=== PATIENT | female | born 2000 | race African-American/Black ===

== ENCOUNTER 2021-10-02 18:37 | Inpatient (IN) | payer MEDICAID ==
[~2021-10-02] VITALS: Ht 165.1 cm; Wt 70.0 kg
[2021-10-02] MEDS ORDERED: DEXAMETHASONE SOD PHOS 20 MG/5 ML VIAL. IV ONE (18:45)
[2021-10-02] MEDS ORDERED: IPRATRPIUM/ALBUTEROL 0.5/2.5MG 3 ML NEBU. NEB ONE ×2 (18:45→21:00)
[2021-10-02] MEDS ORDERED: IPRATRPIUM/ALBUTEROL 0.5/2.5MG 3 ML NEBU. ONE (18:46)
[2021-10-02] MEDS ORDERED: MAGNESIUM SULFATE 2GM 50 ML IV ONE (19:00)
[2021-10-02] MEDS ORDERED: ALBUTEROL SULFATE 2.5 MG/3 ML NEBU. CONT NEB ONE (19:00)
[2021-10-02] MEDS ORDERED: EPINEPHrine 1 MG/ML VIAL IM ONE (19:00)
[2021-10-02] MEDS ORDERED: IV NORMAL SALINE 1000ML BAG 1,000 ML IV ONE (19:00)
[2021-10-02 19:03] LABS: BASO % 1 % (0-3); EOS # 0.6 x10^3/uL (0.0-0.7); EOS % 7 % (0-3); HEMATOCRIT 47.9 % (36.0-47.0); HEMOGLOBIN 15.4 g/dL (12.0-15.5); LYMPH # 3.1 x10^3/uL (1.0-4.8); LYMPH % 35 % (24-48); MEAN CORPUSCULAR HEMOGLOBIN 28 pg (25-35); MEAN CORPUSCULAR HGB CONC 32 g/dL (31-37); MEAN CORPUSCULAR VOLUME 87 fL (79-100); MONO # 0.5 x10^3/uL (0.0-1.1); MONO % 6 % (0-9); NEUT # 4.6 x10^3/uL (1.8-7.7); NEUT % 53 % (31-73); PLATELET COUNT 289 x10^3/uL (140-400); RED CELL DISTRIBUTION WIDTH 12.9 % (11.5-14.5); WHITE BLOOD COUNT 8.7 x10^3/uL (4.0-11.0)
[2021-10-02 19:17] LABS: CALCIUM 8.3 mg/dL (8.5-10.1); CREATININE 0.7 mg/dL (0.6-1.0); GFR 106.7; POTASSIUM 3.5 mmol/L (3.5-5.1)
[2021-10-02 19:22] LABS: ALBUMIN 3.9 g/dL (3.4-5.0); ALBUMIN/GLOBULIN RATIO 1.4 (1.0-1.7); TOTAL BILIRUBIN 0.4 mg/dL (0.2-1.0); TOTAL PROTEIN 6.7 g/dL (6.4-8.2)
[2021-10-02] MEDS ORDERED: ALBUTEROL SULFATE 2.5 MG/3 ML NEBU. NEB PRN (19:30)
--- NOTE | 2021-10-02 19:38 | RAD ---
Study: XR CHEST 1V Indication: Shortness of air. Comparison: None. Findings: The cardiomediastinal silhouette and felisa are within normal limits. No localized airspace opacity, pl eural effusion or pneumothorax. Impression: No acute radiographic abnormality of the chest. Electronically signed by: CORAL HARRINGTON MD (10/02/2021 7:35 PM) [facility]
[2021-10-02 20:03] LABS: INFLUENZA A PATIENT NEGATIVE (NEGATIVE); INFLUENZA B PATIENT NEGATIVE (NEGATIVE)
--- NOTE | 2021-10-02 20:42 | PDOC1 ---
History and Physical Date of Admission Date of Admission DATE: 10/02/21 TIME: 20:34 Source Source: Chart review, Patient History of Present Illness History of Present Illness Pt seen in ER, I was called by Laly for asthma exacerbation, she had tried mag, epi, decadron, cont nebs, and pt still short of breath. Jenniffer says she feels improved in two hours since arrival, but cold and shivering and short of breath. She was in an ER in [facility] 7 days ago and sent hoem with a 5 day burst of prednisone and it ran out two days ago and she has markedly worsened. She has no [facility] primary care and tells me she needs to change that. She has seasonal trouble, spring time is always tough on her asthma, she has not ever seen an supervisor engraving or a open die inspector, she has dogs in the house and lives alone, no birds, no cats. no travel, no contact with a COVID case Past Medical History Cardiovascular: No pertinent hx Pulmonary: Asthma GI: No pertinent hx Heme/Onc: No pertinent hx ENT: No pertinent hx Renal/: No pertinent hx Endocrine: No pertinent hx Grav: 0 Past Surgical History Past Surgical History: No pertinent history Family History Family History: No Significant Social History Smoke: No ALCOHOL: none Drugs: None Current Medications Current Medications Current Medications Albuterol/ Ipratropium (Duoneb) 3 ml STK-MED ONCE .ROUTE ; Start 10/02/21 at 18:46; Stop 10/02/21 at 18:46; Status DC Albuterol/ Ipratropium (Duoneb) 3 ml 1X ONCE NEB ; Start 10/02/21 at 18:45; Stop 10/02/21 at 19:02; Status DC Dexamethasone Sodium Phosphate (Decadron) 10 mg 1X ONCE IV Last administered on 10/02/21at 19:12; Start 10/02/21 at 18:45; Stop 10/02/21 at 19:02; Status DC Epinephrine HCl (Adrenalin) 0.5 mg 1X ONCE IM Last administered on 10/02/21at 19:12; Start 10/02/21 at 19:00; Stop 10/02/21 at 19:02; Status DC Magnesium Sulfate 50 ml @ 25 mls/hr 1X ONCE IV Last administered on 10/02/21at 19:12; Start 10/02/21 at 19:00; Stop 10/02/21 at 20:59 Sodium Chloride 1,000 ml @ 1,000 mls/hr 1X ONCE IV Last administered on 10/02/21at 19:12; Start 10/02/21 at 19:00; Stop 10/02/21 at 19:59; Status DC Albuterol Sulfate (Ventolin Neb Soln) 7.5 mg 1X ONCE CONT NEB ; Start 10/02/21 at 19:00; Stop 10/02/21 at 19:02; Status DC Albuterol Sulfate (Ventolin Neb Soln) 2.5 mg Q4HRS W/A NEB ; Start 10/02/21 at 22:00 Dexamethasone Sodium Phosphate (Decadron) 6 mg DAILY IVP ; Start 10/03/21 at 09:00 Albuterol Sulfate (Ventolin Neb Soln) 2.5 mg PRN Q2HR PRN NEB SHORTNESS OF BREATH; Start 10/02/21 at 19:30 Allergies Allergies: Coded Allergies: No Known Drug Allergies (Unverified , 10/02/21) ROS General: No: Chills, Night Sweats, Fatigue, Malaise, Appetite, Other PSYCHOLOGICAL ROS: No: Anxiety, Behavioral Disorder, Concentration difficultie, Decreased libido, Depression, Disorientation, Hallucinations, Hostility, Irritablity, Memory difficulties, Mood Swings, Obsessive thoughts, Physical abuse, Sexual abuse, Sleep disturbances, Suicidal ideation, Other HEENT: No: Heacaches, Visual Changes, Hearing change, Nasal congestion, Nasal discharge, Oral lesions, Sinus pain, Sore Throat, Epistaxis, Sneezing, Snoring, Tinnitus, Vertigo, Vocal changes, Other Respiratory: YES: Shortness of breath, SOB with excertion, Tachypnea, Wheezing; No: Cough, Hemoptysis, Orthopnea, Pleuritic Pain, Sputum Changes, Stridor, Other Cardiovascular: No Chest Pain, No Palpitations, No Orthopnea, No Paroxysmal Noc. Dyspnea, No Edema, No Lt Headedness, No Other Gastrointestinal: No Nausea, No Vomiting, No Abdominal Pain, No Diarrhea, No Constipation, No Melena, No Hematochezia, No Other Genitourinary: No Dysuria, No Frequency, No Incontinence, No Hematuria, No Retention, No Discharge, No Urgency, No Pain, No Flank Pain, No Other, No , No , No , No , No , No , No Musculoskeletal: No Gait Disturbance, No Joint Pain, No Joint Stiffness, No Joint Swelling, No Muscle Pain, No Muscular Weakness, No Pain In:, No Swelling In:, No Other Neurological: No Behavorial Changes, No Bowel/Bladder ControlChng, No Confusion, No Dizziness, No Gait Disturbance, No Headaches, No Impaired Coord/balance, No Memory Loss, No Numbness/Tingling, No Seizures, No Speech Prob lems, No Tremors, No Visual Changes, No Weakness, No Other Skin: No Dry Skin, No Eczema, No Hair Changes, No Lumps, No Mole Changes, No Mottling, No Nail Changes, No Pruritus, No Rash, No Skin Lesion Changes, No Other, No Acne Physical Exam General: Alert, severe distress HEENT: Atraumatic, PERRLA Lungs: Other (fast, limited volume, decently long wheeze, end rale, ) Heart: S1S2 Abdomen: No tenderness Rectal Exam: not examined Extremities: No clubbing Neuro: Normal tone, Sensation intact Psych/Mental Status: Mood NL Vitals Vitals Vital Signs Date Time Temp Pulse Resp B/P (MAP) Pulse Ox O2 Delivery O2 Flow Rate FiO2 10/02/21 19:56 126 141/80 (100) 100 Room Air 10/02/21 18:37 42 Labs Labs Laboratory Tests Test 10/02/21 18:55 10/02/21 19:32 White Blood Count 8.7 x10^3/uL (4.0-11.0) Red Blood Count 5.50 x10^6/uL (3.50-5.40) Hemoglobin 15.4 g/dL (12.0-15.5) Hematocrit 47.9 % (36.0-47.0) Mean Corpuscular Volume 87 fL (79-100) Mean Corpuscular Hemoglobin 28 pg (25-35) Mean Corpuscular Hemoglobin Concent 32 g/dL (31-37) Red Cell Distribution Width 12.9 % (11.5-14.5) Platelet Count 289 x10^3/uL (140-400) Neutrophils (%) (Auto) 53 % (31-73) Lymphocytes (%) (Auto) 35 % (24-48) Monocytes (%) (Auto) 6 % (0-9) Eosinophils (%) (Auto) 7 % (0-3) Basophils (%) (Auto) 1 % (0-3) Neutrophils # (Auto) 4.6 x10^3/uL (1.8-7.7) Lymphocytes # (Auto) 3.1 x10^3/uL (1.0-4.8) Monocytes # (Auto) 0.5 x10^3/uL (0.0-1.1) Eosinophils # (Auto) 0.6 x10^3/uL (0.0-0.7) Basophils # (Auto) 0.0 x10^3/uL (0.0-0.2) Maternal Serum HCG Beta Subunit < 1 mIU/mL (0-5) Sodium Level 142 mmol/L (136-145) Potassium Level 3.5 mmol/L (3.5-5.1) Chloride Level 108 mmol/L (98-107) Carbon Dioxide Level 24 mmol/L (21-32) Anion Gap 10 (6-14) Blood Urea Nitrogen 8 mg/dL (7-20) Creatinine 0.7 mg/dL (0.6-1.0) Estimated GFR (Cockcroft-Gault) 106.7 BUN/Creatinine Ratio 11 (6-20) Glucose Level 119 mg/dL (70-99) Calcium Level 8.3 mg/dL (8.5-10.1) Total Bilirubin 0.4 mg/dL (0.2-1.0) Aspartate Amino Transf (AST/SGOT) 13 U/L (15-37) Alanine Aminotransferase (ALT/SGPT) 22 U/L (14-59) Alkaline Phosphatase 70 U/L (46-116) Troponin I High Sensitivity < 4 ng/L (4-50) Total Protein 6.7 g/dL (6.4-8.2) Albumin 3.9 g/dL (3.4-5.0) Albumin/Globulin Ratio 1.4 (1.0-1.7) Influenza Type A Antigen Negative (NEGATIVE) Influenza Type B Antigen Negative (NEGATIVE) SARS-CoV-2 Antigen (Rapid) Negative (NEGATIVE) Laboratory Tests Test 10/02/21 18:55 10/02/21 19:32 White Blood Count 8.7 x10^3/uL (4.0-11.0) Red Blood Count 5.50 x10^6/uL (3.50-5.40) Hemoglobin 15.4 g/dL (12.0-15.5) Hematocrit 47.9 % (36.0-47.0) Mean Corpuscular Volume 87 fL (79-100) Mean Corpuscular Hemoglobin 28 pg (25-35) Mean Corpuscular Hemoglobin Concent 32 g/dL (31-37) Red Cell Distribution Width 12.9 % (11.5-14.5) Platelet Count 289 x10^3/uL (140-400) Neutrophils (%) (Auto) 53 % (31-73) Lymphocytes (%) (Auto) 35 % (24-48) Monocytes (%) (Auto) 6 % (0-9) Eosinophils (%) (Auto) 7 % (0-3) Basophils (%) (Auto) 1 % (0-3) Neutrophils # (Auto) 4.6 x10^3/uL (1.8-7.7) Lymphocytes # (Auto) 3.1 x10^3/uL (1.0-4.8) Monocytes # (Auto) 0.5 x10^3/uL (0.0-1.1) Eosinophils # (Auto) 0.6 x10^3/uL (0.0-0.7) Basophils # (Auto) 0.0 x10^3/uL (0.0-0.2) Maternal Serum HCG Beta Subunit < 1 mIU/mL (0-5) Sodium Level 142 mmol/L (136-145) Potassium Level 3.5 mmol/L (3.5-5.1) Chloride Level 108 mmol/L (98-107) Carbon Dioxide Level 24 mmol/L (21-32) Anion Gap 10 (6-14) Blood Urea Nitrogen 8 mg/dL (7-20) Creatinine 0.7 mg/dL (0.6-1.0) Estimated GFR (Cockcroft-Gault) 106.7 BUN/Creatinine Ratio 11 (6-20) Glucose Level 119 mg/dL (70-99) Calcium Level 8.3 mg/dL (8.5-10.1) Total Bilirubin 0.4 mg/dL (0.2-1.0) Aspartate Amino Transf (AST/SGOT) 13 U/L (15-37) Alanine Aminotransferase (ALT/SGPT) 22 U/L (14-59) Alkaline Phosphatase 70 U/L (46-116) Troponin I High Sensitivity < 4 ng/L (4-50) Total Protein 6.7 g/dL (6.4-8.2) Albumin 3.9 g/dL (3.4-5.0) Albumin/Globulin Ratio 1.4 (1.0-1.7) Influenza Type A Antigen Negative (NEGATIVE) Influenza Type B Antigen Negative (NEGATIVE) SARS-CoV-2 Antigen (Rapid) Negative (NEGATIVE) VTE Prophylaxis Ordered VTE Prophylaxis Devices: No VTE Pharmacological Prophylaxi: Yes Assessment/Plan Assessment/Plan acute asthma exacerabation SIRS IV stress steroids, nebs, pulm consult, RT peak flow acute obstructive respiratory failure without hypoxia, respiratory rate 44 on presentation, HR 130 range I dont think she understands how life threatening this can be, needs a pulmonolgist, a primary care, probably an supervisor engraving and needs systemic steroids until this gets figured out. This needs to be addressed when she is feeling better as she was struggling to breathe in the ER Justifications for Admission Other Justification CRYS MADISON MD Oct 02, 2021 20:42
--- NOTE | 2021-10-02 20:47 | PHYS DOC ---
Past Medical History Past Medical History: Asthma Past Surgical History: No Surgical History Smoking Status: Never Smoker Alcohol Use: None General Adult EDM: Chief Complaint: SHORTNESS OF BREATH HPI: HPI: Patient is a 21 year old female with history of asthma presented to the ED today complaining of shortness of breath that began prior to coming to the ED roughly an hour ago. Patient denies any fever. Denies any chest pain. Reports previous history of asthma exacerbation with admission but no intubation Review of Systems: Review of Systems: Constitutional: Denies fever or chills. [] Eyes: Denies change in visual acuity. [] HENT: Denies nasal congestion or sore throat. [] Respiratory: Reports shortness of breath. Cardiovascular: Denies chest pain or edema. [] GI: Denies abdominal pain, nausea, vomiting, bloody stools or diarrhea. [] : Denies dysuria. [] Musculoskeletal: Denies back pain or joint pain. [] Integument: Denies rash. [] Neurologic: Denies headache, focal weakness or sensory changes. [] Psychiatric: Denies depression or anxiety. [] Heart Score: C/O Chest Pain: N/A Risk Factors: Risk Factors: DM, Current or recent (<one month) smoker, HTN, HLP, family history of CAD, obesity. Risk Scores: Score 0 - 3: 2.5% MACE over next 6 weeks - Discharge Home Score 4 - 6: 20.3% MACE over next 6 weeks - Admit for Clinical Observation Score 7 - 10: 72.7% MACE over next 6 weeks - Early Invasive Strategies Current Medications: Current Medications Medications (Trade) Dose Ordered Sig/Nolan Start Time Stop Time Status Last Admin Dose Admin Albuterol Sulfate (Ventolin Neb Soln) 7.5 mg 1X ONCE 10/02/21 19:00 10/02/21 19:02 DC Albuterol/ Ipratropium (Duoneb) 3 ml 1X ONCE 10/02/21 18:45 10/02/21 19:02 DC Dexamethasone Sodium Phosphate (Decadron) 10 mg 1X ONCE 10/02/21 18:45 10/02/21 19:02 DC 10/02/21 19:12 10 MG Epinephrine HCl (Adrenalin) 0.5 mg 1X ONCE 10/02/21 19:00 10/02/21 19:02 DC 10/02/21 19:12 0.5 MG Magnesium Sulfate 50 ml @ 25 mls/hr 1X ONCE 10/02/21 19:00 10/02/21 20:59 10/02/21 19:12 25 MLS/HR Sodium Chloride 1,000 ml @ 1,000 mls/hr 1X ONCE 10/02/21 19:00 10/02/21 19:59 DC 10/02/21 19:12 1,000 MLS/HR Allergies: Allergies: Allergies Coded Allergies Type Severity Reaction Last Updated Verified No Known Drug Allergies 10/02/21 No Physical Exam: PE: Constitutional: Well developed, well nourished, no acute distress, non-toxic appearance. [] HENT: Normocephalic, atraumatic, bilateral external ears normal, oropharynx moist, no oral exudates, nose normal. [] Eyes: PERRLA, EOMI, conjunctiva normal, no discharge. [] Neck: Normal range of motion, no tenderness, supple, no stridor. [] Cardiovascular: Tachycardic Lungs & Thorax: Patient is very short of air, scattered wheezing throughout the lung bases Abdomen: Bowel sounds normal, soft, no tenderness, no masses, no pulsatile masses. [] Skin: Warm, dry, no erythema, no rash. [] Back: No tenderness, no CVA tenderness. [] Extremities: No tenderness, no cyanosis, no clubbing, ROM intact, no edema. [] Neurologic: Alert and oriented X 3, normal motor function, normal sensory function, no focal deficits noted. [] Psychologic: Affect normal, judgement normal, mood normal. [] Current Patient Data: Labs: Laboratory Tests Test 10/02/21 18:55 10/02/21 19:32 White Blood Count 8.7 x10^3/uL (4.0-11.0) Red Blood Count 5.50 x10^6/uL (3.50-5.40) H Hemoglobin 15.4 g/dL (12.0-15.5) Hematocrit 47.9 % (36.0-47.0) H Mean Corpuscular Volume 87 fL (79-100) Mean Corpuscular Hemoglobin 28 pg (25-35) Mean Corpuscular Hemoglobin Concent 32 g/dL (31-37) Red Cell Distribution Width 12.9 % (11.5-14.5) Platelet Count 289 x10^3/uL (140-400) Neutrophils (%) (Auto) 53 % (31-73) Lymphocytes (%) (Auto) 35 % (24-48) Monocytes (%) (Auto) 6 % (0-9) Eosinophils (%) (Auto) 7 % (0-3) H Basophils (%) (Auto) 1 % (0-3) Neutrophils # (Auto) 4.6 x10^3/uL (1.8-7.7) Lymphocytes # (Auto) 3.1 x10^3/uL (1.0-4.8) Monocytes # (Auto) 0.5 x10^3/uL (0.0-1.1) Eosinophils # (Auto) 0.6 x10^3/uL (0.0-0.7) Basophils # (Auto) 0.0 x10^3/uL (0.0-0.2) Maternal Serum HCG Beta Subunit < 1 mIU/mL (0-5) Sodium Level 142 mmol/L (136-145) Potassium Level 3.5 mmol/L (3.5-5.1) Chloride Level 108 mmol/L (98-107) H Carbon Dioxide Level 24 mmol/L (21-32) Anion Gap 10 (6-14) Blood Urea Nitrogen 8 mg/dL (7-20) Creatinine 0.7 mg/dL (0.6-1.0) Estimated GFR (Cockcroft-Gault) 106.7 BUN/Creatinine Ratio 11 (6-20) Glucose Level 119 mg/dL (70-99) H Calcium Level 8.3 mg/dL (8.5-10.1) L Total Bilirubin 0.4 mg/dL (0.2-1.0) Aspartate Amino Transferase (AST) 13 U/L (15-37) L Alanine Aminotransferase (ALT) 22 U/L (14-59) Alkaline Phosphatase 70 U/L (46-116) Troponin I High Sensitivity < 4 ng/L (4-50) L Total Protein 6.7 g/dL (6.4-8.2) Albumin 3.9 g/dL (3.4-5.0) Albumin/Globulin Ratio 1.4 (1.0-1.7) Influenza Type A Antigen Negative (NEGATIVE) Influenza Type B Antigen Negative (NEGATIVE) SARS-CoV-2 Antigen (Rapid) Negative (NEGATIVE) Laboratory Tests 10/02/21 18:55 Laboratory Tests 10/02/21 18:55 Vital Signs: Vital Signs Date Time Temp Pulse Resp B/P (MAP) Pulse Ox O2 Delivery O2 Flow Rate FiO2 10/02/21 19:56 126 141/80 (100) 100 Room Air 10/02/21 18:37 42 EKG: EK interpreted by Dr. Nair sinus tachycardia heart rate 127 no STEMI [] Radiology/Procedures: Radiology/Procedures: []PROCEDURE: CHEST AP ONLY Study: XR CHEST 1V Indication: Shortness of air. Comparison: None. Findings: The cardiomediastinal silhouette and felisa are within normal limits. No localized airspace opacity, pleural effusion or pneumothorax. Impression: No acute radiographic abnormality of the chest. Electronically signed by: CORAL HARRINGTON MD (10/02/2021 7:35 PM) [facility] DICTATED and SIGNED BY: CORAL HARRINGTON MD DATE: 10/02/211934 Course & Med Decision Making: Course & Med Decision Making Pertinent Labs and Imaging studies reviewed. (See chart for details) This is a 21-year-old female patient presenting to the ED today to be evaluated for asthma exacerbation, symptoms began 1 hour ago prior to coming to the ED. Patient was satting 91% on room air on arrival, she is tacky heart rate of 122, blood pressure 133/93. She is working hard to breath. Dr. Nair also evaluated patient Patient was given DuoNeb treatment, albuterol for 1 hour, epinephrine, magnesium, verbalizes improvement but still wheezing. Chest x-ray is negative for any acute findings Patient was admitted to the hospital, Dr. Koch came and evaluated patient. Patient's mother came to the ED, she requested patient to be transferred to [facility]. Dr. Nair, RN and I begged patient to stay or be officially transferred to [facility] after we get an accepting physician, bed and EMS to transport her. Dr. Nair spent an incredible amount of time explaining to the mother and patient how serious patient's illness is and how quickly she can decompensate. He even explained the process of doing a hospital to hospital transfer to avoid EMTALA violation. He even explained to patient and mother the risk of leaving AGAINST MEDICAL ADVICE , worsening symptoms, disability. Dr. Nair called [facility] and was in the process of getting patient an official transfer from [facility] to [facility]. Patient stood up, started walking away, RN was able to get patient to sign AMA. Patient is alert oriented x4 and able to make her own decisions. Veronica Disclaimer: Veronica Disclaimer: This electronic medical record was generated, in whole or in part, using a voice recognition dictation system. Departure Departure Impression: Primary Impression: Asthma exacerbation Qualified Codes: J45.51 - Severe persistent asthma with (acute) exacerbation Additional Impression: Sinus tachycardia Disposition: 02 SHORT TERM HOSPITAL Condition: GUARDED Referrals: NO PCP (PCP) EFRAÍN KELLEY GIN POLE OPERATOR Oct 02, 2021 20:47
[2021-10-02 20:56] VITALS: BP 144/68
[2021-10-02] MEDS ORDERED: POTASSIUM CHLORIDE 20 MEQ TABLET.ER. PO ONE (21:00)
[2021-10-02] MEDS ORDERED: ENOXAPARIN 40 MG/0.4 ML SYRINGE. SQ SCH (21:00)
[2021-10-02] MEDS ORDERED: ALBUTEROL SULFATE 2.5 MG/3 ML NEBU. NEB SCH (22:00)
--- NOTE | 2021-10-03 05:32 | EKG ---
[facility] [address] [place] [id number] Test Date: 2021-10-02 Test Time: 19:51:51 Pat Name: EDILSON STRATTON Department: Room: [facility] Gender: F Shoe Stainer: : 2000 Requested By: EFRAÍN KELLEY Order Number: [id number] MD: Terrance Adrian Measurements Intervals [place] Rate: 127 P: -129 [place]: 112 QRS: 71 QRSD: 86 T: 52 QT: 350 QTc: 515 Interpretive Statements SINUS TACHYCARDIA Electronically Signed On 10-10-2021 14:19:54 CDT by Terrance Adrian
[2021-10-03] MEDS ORDERED: DEXAMETHASONE SOD PHOS 4 MG/ML VIAL IVP SCH (09:00)
== END 2021-10-02 23:00 | disposition left against medical advice (07) | DRG 189 ==
LOC: EDBD 18:37 → ER 18:37 → 5 NORTH 19:21
PROVIDERS: ADMIT Internal Medicine; ATTEND Internal Medicine
DX: J96.90 Respiratory failure, unspecified, unspecified whether with hypoxia or hypercapnia (principal); J45.51 Severe persistent asthma with (acute) exacerbation; R65.10 Systemic inflammatory response syndrome (SIRS) of non-infectious origin without acute organ dysfunction; Z53.29 Procedure and treatment not carried out because of patient's decision for other reasons; Z20.822 Contact with and (suspected) exposure to COVID-19
CPT/HCPCS: 36415; 71045; 80053; 84484; 84702; 85025; 87428; 93005; 94640; 94644; 96365; 96366; 96372; 96375; J0171; J1100; J3475; J7030; U0003; 99285-25; G0378; J7613